=== PATIENT | male | born 1955 | race Caucasian/White ===

== ENCOUNTER → 2019-11-19 | Outpatient (CLI) | payer OTHER, MEDICARE | LOC: SJCVCIMAG 08:30 | DX: I36.1 Nonrheumatic tricuspid (valve) insufficiency (principal); I25.10 Atherosclerotic heart disease of native coronary artery without angina pectoris; I10 Essential (primary) hypertension; E78.5 Hyperlipidemia, unspecified; F17.200 Nicotine dependence, unspecified, uncomplicated; Z79.899 Other long term (current) drug therapy ==